=== PATIENT | female | born 1945 | race Caucasian/White ===

== ENCOUNTER 2022-07-04 19:57 | Emergency (ER) | payer MEDICARE ==
[~2022-07-04] VITALS: Ht 157.5 cm; Wt 72.6 kg
[2022-07-04 20:05] VITALS: BP_SYST 151
--- NOTE | 2022-07-04 20:05 | NUR ---
Patient triaged and placed in ambulance [facility]. VSS and patient appears in no acute distress at this time. Accompanied by ems, awaiting available bed, and MD notified of need for MSE.
[2022-07-04 21:40] LABS: BASOPHILS # (AUTO) 0.1 K/uL (0.0-0.2); BASOPHILS % (AUTO) 0.7 % (0.0-2.0); EOSINOPHILS # (AUTO) 0.1 K/uL (0.0-0.4); EOSINOPHILS % (AUTO) 0.9 % (0.0-4.0); HEMOGLOBIN 15.3 g/dL (12.0-16.0); LYMPHOCYTES # (AUTO) 1.6 K/uL (1.0-5.5); LYMPHOCYTES % (AUTO) 20.4 % (20.5-51.5); MEAN CORPUSCULAR HEMOGLOBIN 31 pg (27-31); MEAN CORPUSCULAR HGB CONC 33 % (32-36); MEAN CORPUSCULAR VOLUME 94 fL (79.0-98.0); MONOCYTES # (AUTO) 0.7 K/uL (0.0-1.0); MONOCYTES % (AUTO) 9.2 % (1.7-9.3); NEUTROPHILS # (AUTO) 5.3 K/uL (1.8-7.7); NEUTROPHILS % (AUTO) 68.8 % (40.0-70.0); PLATELET COUNT (AUTO) 273 K/uL (130-430); RED CELL DISTRIBUTION WIDTH 13.6 % (9.0-15.0); WHITE BLOOD COUNT (AUTO) 7.6 K/uL (4.8-10.8)
[2022-07-04 22:18] LABS: ALANINE AMINOTRANSFERASE 36 U/L (12-78); ALBUMIN 3.9 g/dL (3.4-4.8); ANION GAP 9 (5-15); ASPARTATE AMINOTRANSFERASE 21 U/L (10-37); CALCIUM 9.1 mg/dL (8.4-11.0); CHLORIDE 102 mmol/L (98-107); CREATININE 1.06 mg/dL (0.55-1.30); GLUCOSE 121 mg/dL (70-99); TOTAL BILIRUBIN 0.3 mg/dL (0.0-1.0)
[2022-07-04 22:20] LABS: PROTHROMBIN TIME 10.3 SECS (9.5-12.5)
[2022-07-04 22:27] LABS: UREA NITROGEN, BLOOD 15 mg/dL (8-21)
[2022-07-04 22:49] LABS: ACETONE, SERUM NEGATIVE (NEGATIVE)
--- NOTE | 2022-07-04 22:52 | NUR ---
Placed in room 6 . Placed on cardiac/vascular sonographer, blood pressure machine and pulse oximeter. To gown for exam. Side rails up. Report given to Amanda RN(reg).
[2022-07-04 23:01] LABS: THYROID STIMULATING HORMONE 1.49 uIu/mL (0.34-4.82)
[2022-07-04 23:27] LABS: BILIRUBIN,URINE NEGATIVE (NEGATIVE); BLOOD, URINE NEGATIVE (NEGATIVE); CLARITY/URINE CLEAR (CLEAR); COLOR,URINE YELLOW (YELLOW); GLUCOSE,URINE NEGATIVE (NEGATIVE); KETONES,URINE NEGATIVE (NEGATIVE); LEUKOCYTE ESTERASE ,URINE NEGATIVE (NEGATIVE); NITRITE, URINE NEGATIVE (NEGATIVE); PH,URINE 6.5 (5.0-8.0); PROTEIN URINE NEGATIVE (NEGATIVE); UROBILINOGEN,URINE 0.2 (0.2-1.0)
--- NOTE | 2022-07-05 01:06 | NUR ---
PT CLEARED TO BE dc. NO MEDICATION PRESCRIBED
[2022-07-05] MEDS ORDERED: MECLIZINE HCL 25 MG TABLET (ANITVERT) PO ONE (01:15)
== END 2022-07-05 01:03 | disposition home or self-care (01) ==
LOC: SED 19:57
DX: H43.392 Other vitreous opacities, left eye (principal); R53.1 Weakness; R10.9 Unspecified abdominal pain; R42 Dizziness and giddiness; Z88.2 Allergy status to sulfonamides; Z88.3 Allergy status to other anti-infective agents; Z79.899 Other long term (current) drug therapy
CPT/HCPCS: 36415; 71045; 76376; 80053; 81003; 82009; 82550; 83605; 84439; 84443; 84484; 85025; 85610-TC; 85730-TC; 93005; 99285